=== PATIENT | male | born 1945 | race Caucasian/White ===

== ENCOUNTER 2017-01-07 09:53 | Day surgery (SDC) | payer MEDICARE ==
--- NOTE | 2017-01-06 17:50 | PCM.ANEPRE ---
Anesthesia Pre-Op Review Reason for Review: FYI-PLATELET COUNT 01/06/17 64 Additional Comments Platelets 64K. Advise against central regional technique. Sergey Strickland MD Jan 06, 2017 17:49
[~2017-01-07] VITALS: Ht 172.7 cm; Wt 83.0 kg
[2017-01-07] VITALS (8 sets, daily range): BP systolic 114–133; BP diastolic 59–73; PULSE 58–86; RESP 13–16; O2SAT 95–98
--- NOTE | 2017-01-07 07:09 | PCM.HPANE ---
Patient Data Surgeon Admitting Provider: Attending Provider:Lencho Cali MD Primary Care Physician:Angelic Tobias PA-C Other Provider:George Bess Anesthesia Reason for Visit Right Ureteral Stone Ht/WT & BMI Height (Feet): 5 Height (Inches): 8 Weight (Kilograms): 83.007 Body Mass Index 27.00 Allergies Coded Allergies: No Known Allergies (Unverified , 01/06/17) Past Anesthesia History Anesthesia History: Denies:: Fam Anesthesia Reaction, Fam Malignant Hypertherm Diabetes History Hx Diabetes?: No MRSA MRSA: No Medications Reported Medications oxyCODONE-Acetaminophen 5-325 mg 1 Each Tablet1 Tab PO Q4H PRN For Pain Ref 0 01/06/17 Ondansetron (Zofran)4 Mg Tablet4-8 Mg PO Q8H PRN For Nausea 01/06/17 Tamsulosin (Flomax)0.4 Mg Capsule0.4 Mg PO DAILY Ref 0 01/06/17 History History of ENT Problems?: No Hx of Heart Problems?: Yes Cardiovascular History: Positive for:: Irregular Heartbeat (PT REPORTS 1 BOUT OF "VERY FAST HEARTBEAT") Denies:: Heart Murmur Hypertension Other Cardiac History: PLATELET COUNT 64 01/06/2017 Hx of Respiratory Problem?: No Respiratory History: Denies:: Use of C-PAP Machine Hx Neurologic Problems?: No Hx of GI Problems?: Yes Gastrointestinal History: Positive for:: Hepatitis (HX CHRONIC HEP C TREATED "SEVERAL YRS AGO") Hx of Problems?: Yes Genitourinary History: Positive for:: Kidney Stones (RT URETERAL STONE= CURRENT PROBLEM) Other Pertinent History: C/OF NAUSEA & RT FLANK PAIN Male Hx: Denies:: Prostate Problems Scrotal Mass Testicular Surgery Skin History: Denies:: History Skin Disorders? Pressure Ulcers Hx Musculoskeletal Problems?: No Hx of Psycho/Social Problems?: No Hx Surgeries?: No Hx Any Other Health Problems?: No Other History: Denies:: Cancer Endocrine Disease Hospitalization Thyroid Disease History Blood Transfusions: Denies:: Blood Transfusions Hx Diabetes: No Have You Smoked inLast 12 mo: No Stop/Bang S-Snoring: Do You Snore Loudly: No T-Tired: feel tired, fatigued: No O-Obsered: Observed not breath: No P-Blood Pressure: treated: No B- Body Mass Index > 35 kg/m2: No A- Age over 50: Yes N- Neck Large Circumference: No G- Gender Male: Yes JUAN MANUEL Total Score: 2 Risk Assessment Category Category 1A: Patient has history of documented sleep apnea, and HAS NOT received any narcotic, sedative or anesthesia administration during this stay. Category 1B: Patient has history of documented sleep apnea, and HAS received any narcotic , sedative or anesthesia administration during this stay Category 2: Patient has SUSPECTED Obstructive Sleep Apnea, and HAS received any narcotic , sedative or anesthesia administration during this stay. Category 3: Patient has SUSPECTED Obstructive Sleep Apnea and HAS NOT received narcotic, sedative or anesthesia administration during this stay. Category 4: Outpatient in Procedural Areas with known sleep apnea or who screen positive for High Risk via the STOP/BANG questionnaire. Exam Exam General Appearance: Alert, Oriented X3, Cooperative HEENT/AIRWAY: MP 2, Neck Movement (from), Mouth Opening (wnl ) Lungs: Clear to Auscultation Heart: Exam Unremarkable Plan Impression Patient chart reviewed, patient interviewed and anesthestic plan with risks, benefits, and alternatives discussed, and informed consent obtained. ASA Physical Status: ASA2 Mod Systemic Disease Anesthetic Plan: GA Bene/Risks/Altern/Consents: Yes HP Complete Prior to Induction: Yes Duran Lora MD Jan 07, 2017 07:09
[~2017-01-07 09:53] MED LIST: Lactated Ringer's 1,000 ML IV SCH; Levofloxacin 500 mg/100 mL D5W IV SCH; ONDA4TAB6 PO; OXYC1TAB24 PO; TAMS0.4C98 PO
[2017-01-07] MEDS ORDERED: fentaNYL-PF 50 mCg/mL 2 mL Inj ONE (09:54)
[2017-01-07] MEDS ORDERED: Ondansetron 2 mg/mL 2 mL Inj ONE (09:54)
[2017-01-07] MEDS ORDERED: Lactated Ringer's 1,000 ML IV ONE (10:13)
[2017-01-07 11:25] LABS: Mean Corpuscular Hemoglobin 31.7 pg (27.0-35.0); Mean Corpuscular Volume 90.4 fL (81-100)
[2017-01-07] MEDS ORDERED: Iopamidol-300 50 mL Inj IV ONE (12:02)
[2017-01-07] MEDS ORDERED: Belladonna Alk-Opium 60 mg Rectal Suppository RECTAL ONE ×2 (12:08→12:30)
--- NOTE | 2017-01-07 12:55 | PCM.ANEP1 ---
Post Anesthesia Phase 1 PACU Phase 1 Assessment Vital Signs Vital Signs Date Time Temp Pulse Resp B/P Pulse Ox O2 Delivery O2 Flow Rate FiO2 01/07/17 10:09 36.6 58 14 120/70 97 Room Air Anesthetic Administered: GA Level of Alertness: Awake, talking HOLMAN's with Equal Strength: Yes Pain: No Nausea or Vomiting: No Oxygen Delivery: Room Air Lungs: Normal Air Movement Duran Lora MD Jan 07, 2017 12:55
--- NOTE | 2017-01-07 13:02 | PCM.SURGPO ---
Immediate Operative Note Date of Surgery: Jan 07, 2017 Pre Operative Diagnosis R ureteral calculus Post Operative Diagnosis R ureteral calculus Procedure Cystoscopy, R ureteroscopy, Holmium laser lithotripsy, basket extraction of calculus fragments, and R ureteral stent placement Surgeon and Reel Film Inspector Surgeon: Lencho Cali MD Assistants: None Findings Cystoscopy revealed no bladder tumors, lesions, or calculi. R semi-rigid ureteroscopy revealed an approx. 7mm R distal ureteral calculus. Holmium laser lithotripsy and basket extraction of calculus fragments were performed. R ureteral stent was placed. Complications There were no periprocedural complications identified. Surgical Specimen Removed: Yes Specimen sent to Pathology: No Surgical Specimen description: R ureteral calculus fragments sent to lab for stone analysis Anesthetic Administered: GA Grafts, Implants: Other (28cm x 5F R ureteral JJ stent (no string)) Output, Estimated Blood Loss: <5 Blood Admin during surgery: No Additional information Patient to be discharged home when stable, to return to see me in 1 week for cystoscopy, stent removal, and post-op visit. Lencho Cali MD Jan 07, 2017 13:01
--- NOTE | 2017-01-07 13:02 | DRSVH ---
PROCEDURE: X-RAY RETROGRADE UROGRAPHY INDICATIONS: STENT PLACEMENT TECHNIQUE: 3 intra-operative images acquired by the Urology service. COMPARISON: [facility], CT, CT ABDOMEN PELVIS WO CONTRAST, 01/01/2017, 9:37 PM. FINDINGS: 3 submitted images demonstrate moderate right hydronephrosis. The ureter is not well seen . Ureteral stent was placed. IMPRESSION: Moderate right hydronephrosis present and placement of right ureteral stent. Dictated by: Eder Wallace Luis Eduardo Interpreted: Robert Dumont MD on 01/07/2017 at 13:00 Transcribed by: ALPHONSE on 01/07/2017 at 13:01 Approved by: Robert Dumont M.D. on 01/08/2017 at 20:58
--- NOTE | 2017-01-07 13:15 | PCM.DISURG ---
Surgical Discharge Instruction Date of Service Jan 07, 2017 Dates of Hospitalization Date of Hospital Admission Jan 07, 2017 Providers Admitting Physician: Lencho Cali MD Primary Care Physician: Angelic Tobias PA-C Attending Physician: Lencho Cali MD Discharge Diagnosis Discharge Diagnosis R ureteral calculus Post Operative diagnosis R ureteral calculus Diet Discharge Diet: No restrictions, Other (Drink at least 10-12 8oz. glasses (3 liters) of fluids per day) Activity Discharge Activity-General: No driving while taking narcotic, Other (No strenuous exercise/activity or moderate/heavy lifting (>10 lbs.) as long as there is blood in the urine) Dressing and Incisional Care Hygiene: May shower Follow Up Plan Follow-up Provider (F9): Lencho Cali MD Follow-up appointment: Weeks (1 week for cystoscopy, stent removal, and post- op visit) Call your provider for: Fever, Chills, Vomiting, Other (Pain uncontrolled by pain medications) Lencho Cali MD Jan 07, 2017 13:15
[2017-01-07] MEDS ORDERED: HYDROmorphone 0.5 mg/0.5 mL iSecure Syringe ONE (14:12)
--- NOTE | 2017-01-08 03:35 | OP ---
[address] [address] OPERATIVE REPORT PATIENT: JACKIE LACEY : 1945 MR#: [id number] ADMIT: 01/07/2017 JOB ID: [id number] DATE OF SURGERY: 01/07/2017 PREOPERATIVE DIAGNOSIS(ES): Right ureteral calculus. POSTOPERATIVE DIAGNOSIS(ES): Right ureteral calculus. PROCEDURES: 1. Cystoscopy. 2. Right ureteroscopy. 3. Holmium laser lithotripsy. 4. Basket extraction of calculus fragments. 5. Right ureteral stent placement. SURGEON: Lencho Cali MD QUOTE CLERK: None. ANESTHESIA: General. ESTIMATED BLOOD LOSS: Less than 5 mL. SPECIMENS: Right ureteral calculus fragments sent to the lab for stone analysis. DRAINS: A 28 cm x 5-Bhutanese right ureteral double-J stent. COMPLICATIONS: None. CONDITION: Stable. FINDINGS: Cystoscopy revealed no bladder tumors, lesions or calculi. Right semi-rigid ureteroscopy revealed an approximately 7 mm right distal ureteral calculus. Holmium laser lithotripsy and basket extraction of calculus fragments were performed. Right ureteral stent was placed. INDICATIONS: The patient is a 71-year-old male with a right distal ureteral calculus. The patient now presents for cystoscopy, right ureteroscopy, holmium laser lithotripsy, basket extraction of calculus fragments and right ureteral stent placement. PROCEDURE NOTE: The patient was brought to the operating room and placed supine on the operating room table. The patient was given Levaquin IV antibiotics. Sequential compression device boots were placed. General anesthesia was administered. The patient was brought down into dorsal lithotomy position. Patient was prepped and draped in standard surgical fashion. A 22-Bhutanese rigid cystoscope was placed into the distal urethra without difficulty. Cystoscopy revealed normal distal urethra, no bladder tumors, lesions or calculi, and bilateral ureteral orifices in normal position. An angle-tip UltraTrack guidewire was passed into the right ureteral orifice and passed up the right ureter and into the right renal pelvis. The cystoscope was removed from the patient. The guidewire was secured to the drape with a Ana clamp as a safety wire. A semi-rigid ureteroscope was advanced through the urethra and bladder and into the right ureteral orifice with assistance of a PTFE guidewire. Right semi-rigid ureteroscopy revealed an approximately 7 mm right distal ureteral calculus. Holmium laser lithotripsy of the calculus was performed using a 273 micron holmium laser fiber fragmenting the calculus into small fragments. Basket extraction of all significant larger than 1 mm calculus fragments was performed using a 2.2-Bhutanese WallStriporLocate Special Diet helical Nitinol basket. Calculus fragments were sent to the lab for stone analysis. The right distal and right mid ureter were visualized with the semi-rigid ureteroscope. No significant larger than 1 mm calculus fragments were seen. A small amount of contrast was instilled into the right ureter and right renal collecting system to illuminate the right renal collecting system to aid in stent placement. Right hydronephrosis was seen. The semi-rigid ureteroscope was removed from the patient. The rigid cystoscope was passed over the safety guidewire through the urethra and into the bladder. A 28 cm x 5-Bhutanese ureteral double-J stent, with the stent string removed prior to stent placement, was passed over the guidewire through the cystoscope and passed up the right ureter and placed so that the proximal pigtail was located in the right renal pelvis and distal pigtail was located in the bladder. The guidewire was removed. Correct positioning of the stent was confirmed both fluoroscopically and under direct visualization using the cystoscope. Good efflux of contrast could be seen draining from the distal end of the stent into the bladder, further confirming correct stent positioning. The bladder was drained via the cystoscope. The cystoscope was removed from the patient. The skin was cleaned and dried. The patient was placed in supine position. The patient was awakened from general anesthesia and transferred to the recovery room in stable condition. The patient tolerated the procedure well. Plan is for the patient to be discharged home when stable and to return to see me in the office in one week for cystoscopy, stent removal and postop visit. TRELL
--- NOTE | 2017-01-08 07:09 | PCM.ANEP2 ---
Post Anesthesia Evaluation ASA/CMS Post Anesthesia VS in Patient's Normal Range?: Yes Resp Stable; Airway Patent?: Yes CV Function & Hydration Stable: Yes Mental Status Recovered?: Yes Pain control Satisfactory?: Yes N/V Control Satisfactory?: Yes Duran Lora MD Jan 08, 2017 07:09
[2017-01-14 14:09] LABS: Stone Color Brown (.)
== END 2017-01-07 23:59 | disposition home or self-care (01) ==
LOC: SAS 09:53
PROVIDERS: ATTEND Urology
DX: N20.1 Calculus of ureter (principal); B18.2 Chronic viral hepatitis C
CPT/HCPCS: 36415; 52356; 74420; 82360; 85027; C2617; J2405; J3010; J7120; Q9967